=== PATIENT | female | born 1975 | race Two or more races ===

== ENCOUNTER → 2024-10-08 | Outpatient (CLI) | payer MEDICAID, SELFPAY ==
--- NOTE | 2024-10-08 08:45 | XR_ITS ---
Examination: Screening digital mammography, bilateral Computer aided detection 3-D breast Tomosynthesis, bilateral Date and time of exam: October 08, 2024 0853 hours Compared to mammograms dating to 02/24/2016 Indication: Screening Technique: Nonmagnified MLO, CC views of the breasts to been obtained, reconstructed from 3-D Tomosynthesis images. R2 computer aided detection program utilized for evaluation of suspicious masses and/or abnormal calcifications. 3-D Tomosynthesis images obtained. Findings: Scattered areas of fibroglandular density. Benign calcifications. No interval suspicious masses Impression: BI-RADS category II: Benign Findings. Recommend 1 year follow-up mammogram.
== END | disposition home or self-care (01) ==
LOC: CDIM 08:47
PROVIDERS: Referring Provider Nurse Practitioner Family; Visit Provider Nurse Practitioner Family
DX: Z12.31 Encounter for screening mammogram for malignant neoplasm of breast (principal); R92.323 Mammographic fibroglandular density, bilateral breasts; R92.1 Mammographic calcification found on diagnostic imaging of breast
CPT/HCPCS: 77063; 77067

== ENCOUNTER → 2024-10-30 | Outpatient (CLI) | payer MEDICAID, SELFPAY ==
--- NOTE | 2024-10-30 13:00 | XR_ITS ---
Examination: Bone densitometry Date and time of exam:October 30, 2024 1322 hours INDICATIONS: Menopause age 46, personal history osteoporosis Technique: Lumbar spine and hip total bone mineralization values of an calculated. Peak reference and age match control results have been displayed. Findings: Lumbar spine total bone mineralization is0.775 gm/cm2. This is 2.5 standard deviations below peak reference. This is 1.8 standard deviations below age-matched controls. Hip total bone mineralization is 0.927 gm/cm2 This is 0.3 standard deviations below peak reference. This is 0.1 standard deviations above age-matched controls Impression: There is osteoporosis based on lumbar spine measurements. There is normal mineralization based on hip measurements
== END | disposition home or self-care (01) ==
PROVIDERS: PCP Nurse Practitioner Family; Referring Provider Nurse Practitioner Family; Visit Provider Nurse Practitioner Family
DX: M81.0 Age-related osteoporosis without current pathological fracture (principal)
CPT/HCPCS: 77080

== ENCOUNTER 2025-02-26 21:29 | Emergency (ER) | payer MEDICAID, SELFPAY ==
[2025-02-26 21:34] VITALS: BP 143/87; PULSE 79; RESP 18; TEMP 36.6; O2SAT 97
--- NOTE | 2025-02-26 21:49 | XR_ITS ---
Examination: Abdomen sonogram, Limited Date and time of exam: February 26, 2025 2153 hrs. Indications: Epigastric pain and nausea beginning one week ago Technique: Real-time ordoñez scale transabdominal sonographic images of the upper abdomen obtained. Findings: Normal gallbladder Normal common bile duct 0.3 cm Pancreatic head 2.3 cm Liver 13.6 cm Normal hepatopedal portal venous flow Patent IVC Impression: Normal gallbladder
--- NOTE | 2025-02-26 21:50 | PD.EDRME ---
Rapid Medical Screening Exam RME Arrival date/time: 02/26/25 21:29 Chief Complaint: Abdominal Pain Time Seen by Provider: 02/26/25 21:41 Vital signs: Vital Signs Temperature 98 F 02/26/25 21:34 Pulse Rate 79 02/26/25 21:34 Respiratory Rate 18 02/26/25 21:34 Blood Pressure 143/87 H 02/26/25 21:34 Pulse Oximetry (%) 97 02/26/25 21:34 Oxygen Delivery Method Room Air 02/26/25 21:34 E Narrative: Epigastric pain, nausea x 1 week
[2025-02-26 22:17] LABS: Basophils # (Auto) 0.0 Thou/mm3 (0.0-0.2); Basophils % (Auto) 0 % (0-2.5); Eosinophils # (Auto) 0.1 Thou/mm3 (0.0-0.5); Eosinophils % (Auto) 2 % (0-10); Hematocrit 39.4 % (36.0-46.0); Hemoglobin 12.9 g/dL (12.0-16.0); Immature Granulocytes Auto 0.03 Thou/mm3 (0.00-0.00); Lymphocytes # (Auto) 1.7 Thou/mm3 (1.0-4.8); Lymphocytes % (Auto) 25 % (10-50); Mean Corpuscular HGB Conc 32.7 g/dl (31.0-37.0); Mean Corpuscular Hemoglobin 28.7 pg (25.0-35.0); Mean Corpuscular Volume 88 fL (80-100); Monocytes # (Auto) 0.7 Thou/mm3 (0.0-0.8); Monocytes % (Auto) 9 % (0-12); Neutrophils # (Auto) 4.5 Thou/mm3 (1.8-7.7); Neutrophils % (Auto) 64 % (37-80); Nucleated Red Blood Cell # 0.00 Thou/mm3 (0.00-0.00); Nucleated Red Blood Cell % 0 /100 WBC (0); Platelet Count 406 Thou/mm3 (140-440); RDW Standard Deviation 43.7 fL (36.4-46.3); Red Blood Count 4.49 Miln/mm3 (4.00-5.20); White Blood Count 7.0 Thou/mm3 (3.6-11.0)
[2025-02-26 22:17] LABS: Collection Type, Urine Clean Catch
--- NOTE | 2025-02-26 22:19 | EDNOTE_ITS ---
ED Abdominal Pain RME/HPI General Chief Complaint: Abdominal Pain Stated complaint: ABD PAIN Time seen by provider: 02/26/25 21:41 Arrival date/time: 02/26/25 21:29 RME / HPI RME / HPI narrative: Epigastric pain, nausea x 1 week --------- Dr. Hadley?s Main ED Evaluation: 50yo female with no significant past medical history presents to the ED for a chief complaint of epigastric pain x 1 week. No radiation or migration. Patient reports associated nausea. She took Mylanta at home yesterday without relief. Patient does not take any daily medications. NKA. Related Data Previous Rx's ?Medication ?Instructions ?Recorded celecoxib 200 mg capsule (Celebrex) 200 mg PO BID PRN pain #60 caps 03/03/19 cyclobenzaprine 10 mg tablet 10 mg PO TID PRN muscle s pasm #30 03/03/19 tabs methylprednisolone 4 mg tablets in See Rx Instructions PO PER PKG DIR 03/03/19 a dose pack (Medrol (Amari)) #21 tabs pantoprazole 40 mg tablet,delayed 40 mg PO QDAY #30 ta bs 02/26/25 release (Protonix) Allergies Allergy/AdvReac Type Severity Reaction Status Date / Time No Known Allergies Allergy Verified 02/26/25 21:30 Review of Systems Review of Systems Systems Reviewed: All systems reviewed, normal except as documented Past Medical History Past Medical History CARDIAC: Negative Congestive Heart Failure RESPIRATORY: Negative Chronic Obstructive Pulmonary Disease (COPD) GENITOURINARY: Negative Renal Disease ENDOCRINE: Negative Diabetes Mellitus Type 1 or Diabetes Mellitus Type 2 Social History SMOKING STATUS: Never smoker ED Exam Narrative Physical exam: Generally patient is alert in no obvious distress, heart regular rate and rhythm, lungs clear to auscultation equal bilaterally, abdomen soft bowel sounds present nondistended mild epigastric abdominal tenderness without rebound. No right upper quadrant abdominal tenderness. Skin is warm pale and dry neurologic exam Jill Coma Scale is 15 Course Quality Measures none Orders Category Date Time Status US gall bladder Stat Exams 02/26/25 21:49 Completed Amylase Stat Lab 02/26/25 22:02 Completed CBC Stat Lab 02/26/25 22:02 Completed CMP [Comprehensive Metabolic Panel] Stat Lab 02/26/25 22:02 Completed HCG Qualitative,Urine Stat Lab 02/26/25 22:14 Completed Troponin I Stat Lab 02/26/25 22:02 Completed UA [Urinalysis] Stat Lab 02/26/25 22:14 Completed Lidocaine 2% Viscous [Xylocaine 2% Viscous] Med 02/26/25 22:25 Discontinued 15 ml PO X1 ONE mg Hyd/Al Hyd/Fabio Susp [Maalox Susp] Med 02/26/25 22:25 Discontinued 30 ml PO X1 ONE Vital Signs Vital signs: Vital Signs Temperature 98 F 02/26/25 21:34 Pulse Rate 79 02/26/25 21:34 Respiratory Rate 18 02/26/25 21:34 Blood Pressure 143/87 H 02/26/25 21:34 Pulse Oximetry (%) 97 02/26/25 21:34 Oxygen Delivery Method Room Air 02/26/25 21:34 Abdominal Pain MDM MDM Narrative MDM Narrative:: Scribe Attestation: 02/26/25 - Deepika Crespo am scribing for and in the presence of Dr. Hadley. I interpreted all labs. There is no leukocytosis. LFTs are normal. Renal function is normal. Gallbladder ultrasound is negative. Patient received a GI cocktail consisting of 15 cc of viscous lidocaine and 30 cc of Mylanta with benefit. Patient will be started on Protonix to be taken as prescribed. Avoid hot spicy greasy fatty foods. She may use [id number] Maalox or Mylanta as needed for pain. Patient data External records reviewed:: [facility] previous records (Per chart review, patient has no previous ED visits or admissions to this facility.) Clinical information provided by:: patient Social determinants that could affect healthcare access:: none Patient has the following chronic illnesses:: none How is presenting disease/condition affected by chronic disease/condition?: no chronic disease Evaluation data The following diagnostics were reviewed and interpreted by me:: lab results and radiology exam(s) Lab and/or radiology exams considered but not ordered:: none Interpretation Summary: [facility] Report Signed Patient: SHELTON RENEE Record#: [id number] Birthdate: 1975 Age/Sex: 50 / F [facility]: Ordering Physician: Garland Cleveland PA-C Date of Service: 02/26/25 Procedure(s): US gall bladder Accession Number(s): [id number] cc: Adela Solitario; Mainor Olivo MD; Garland Cleveland PA-C~ Examination: Abdomen sonogram, Limited Date and time of exam: February 26, 2025 2153 hrs. Indications: Epigastric pain and nausea beginning one week ago Technique: Real-time ordoñez scale transabdominal sonographic images of the upper abdomen obtained. Findings: Normal gallbladder Normal common bile duct 0.3 cm Pancreatic head 2.3 cm Liver 13.6 cm Normal hepatopedal portal venous flow Patent IVC Impression: Normal gallbladder Dictated By: Mainor Olivo MD Signed By: <Electronically signed by Mainor Olivo MD in OV> 02/26/25 2213 Medications / Prescriptions Medications or Prescriptions considered but not ordered:: none Medication administrations:: Medication Administration History Discontinued Medications Al Hydrox/Mg Hydrox/Simethicone (Mg Hyd/Al Hyd/Fabio (Maalox Reg) Susp 30 Ml Udc) 30 ml PO X1 ONE Stop: 02/26/25 22:26 Last Admin: 02/26/25 22:57 Dose: 30 ml Documented By: THOMAS Lidocaine HCl (Lidocaine Viscous 2% 15 Ml Udc) 15 ml PO X1 ONE Stop: 02/26/25 22:26 Last Admin: 02/26/25 22:56 Dose: 15 ml Documented By: THOMAS see above Consultations Consultation(s) initiated? (list below): No Diagnosis Differential diagnosis abdominal pain: other (See MDM.) Most likely diagnosis given after review of the tests above:: see clinical impression below Admission Indicated Admission indicated?: not indicated Admission Request Was there a request for admission?: No Disposition Plan Disposition Plan: Discharge Discharge Attestation Discharge Attestation: The patient and all family members were given an opportunity to ask questions and understood the discharge instructions. Discharge instructions specifically effects, indications for sooner follow up or return to the emergency department, and the expected course of current diagnosis. Patient condition: Stable Discharge Plan Plan Patient Disposition: HOME (Self Care) Prescriptions/Referrals Prescriptions/Med Rec: New pantoprazole [Protonix] 40 mg tablet,delayed release (DR/EC) 40 mg PO QDAY Qty: 30 0RF No Action celecoxib [Celebrex] 200 mg capsule 200 mg PO BID PRN (Reason: pain) Qty: 60 0RF cyclobenzaprine 10 mg tablet 10 mg PO TID PRN (Reason: muscle spasm) Qty: 30 0RF methylprednisolone [Medrol (Amari)] 4 mg tablets,dose pack See Rx Instructions PO PER PKG DIR Qty: 21 0RF Dose Instruction: PO PER PKG DIR Rx Instructions: PO PER PKG DIR Referrals: Adela Solitario FNP-C [Primary Care Provider] - In 1 week Problem List Clinical Impression: Gastritis Patient/Caregiver Discharge Instructions Education Materials: ED Gastritis (Adult) Additional Instructions: Medication as prescribed. Avoid hot spicy greasy fatty foods. Follow-up with your doctor. Return to ER as needed or if condition worsens. Print Language: Citizen Of [place] Stand Alone Forms: [facility] Award Info., Patient Portal Info Letter
[2025-02-26 22:35] LABS: HCG Qualitative,Urine Negative
[2025-02-26 22:36] LABS: Bilirubin,Urine Negative (Negative); Blood,Urine Negative (Negative); Clarity,Urine Clear (Clear/Hazy); Color,Urine Colorless (Lt Yel-Yel); Glucose, Urine Negative (Negative); Ketones,Urine Negative (Negative); Leukocyte Esterase,Urine Negative (Negative); Nitrite,Urine Negative (Negative); PH,Urine 7.0 (5.0-7.0); Protein,Urine Negative (Neg - Trace); RBC,Urine 1 /hpf (0-3); Specific Gravity,Urine 1.011 (1.001-1.035); Squamous Epithelial Cell,Urine 1 /hpf (0-5); Urobilinogen,Urine Negative mg/dL (0.0-1.0); WBC,Urine 2 /hpf (0-5)
[2025-02-26 22:36] LABS: Alanine Aminotransferase 15 U/L (10-49); Albumin, Serum 4.0 gm/dL (3.5-5.0); Albumin/Globulin Ratio 1.5 (1.2-2.2); Alkaline Phosphatase 91 U/L (46-116); Amylase 48 U/L (30-118); Anion Gap 8 (7-16); Aspartate Amino Transferase 19 U/L (0-34); BUN/Creatinine Ratio 11 Ratio (12-20); Bilirubin,Total 0.2 mg/dL (0.3-1.2); Blood Urea Nitrogen 9 mg/dL (9-23); Calcium 9.6 mg/dL (8.3-10.6); Calcium (Corrected) 9.6 mg/dL (8.5-10.1); Carbon Dioxide 27.7 mMol/L (20.0-31.0); Chloride 106 mMol/L (98-107); Creatinine (Component) 0.8 mg/dL (0.6-1.3); Globulin 2.6 gm/dL (2.3-3.5); Glucose 118 mg/dL (74-106); Osmolality,Calculated 282 (275-295); Potassium 3.9 mMol/L (3.4-5.1); Sodium 142 mMol/L (136-145); Total Protein 6.6 gm/dL (5.7-8.2); Troponin I < 0.002 ng/mL (0.0-0.045); eGFR > 60 See Note
[2025-02-26] MEDS: LIDOCAINE VISCOUS 2% 15 ML UDC PO (22:56)
[2025-02-26] MEDS: MG HYD/AL HYD/SIME (Maalox Reg) SUSP 30 ML UDC PO (22:57)
[2025-02-26 23:18] VITALS: BP 113/74; PULSE 66; RESP 17; TEMP 36.7; O2SAT 93
== END 2025-02-26 23:20 | disposition home or self-care (01) ==
PROVIDERS: Physician Assistant; Emergency Provider Emergency Medicine; PCP Nurse Practitioner Family
DX: K29.70 Gastritis, unspecified, without bleeding (principal)
CPT/HCPCS: 36415; 76705; 80053; 81001; 81025; 82150; 84484; 85025; 99283; J3490; A9270